=== PATIENT | male | born 1935 | race Caucasian/White ===

== ENCOUNTER 2020-04-13 13:56 | Inpatient (IN) ==
--- NOTE | 2020-04-13 14:38 | ERNOTE ---
Medical Problem HPI - Narrative Date of Service: 04/13/20 - General Chief Complaint: General Assessment Time Seen by Provider: 04/13/20 14:21 Source: patient Exam Limitations: no limitations - Immun/Allergies/Home Medications Immunizations: IMMUNIZATION HX Immunizations Up to Date No History of Influenza Vaccine No Hx Pneumococcal Vaccination No Allergies/Adverse Reactions: Allergies No Known Allergies Allergy (Verified 04/13/20 14:18) Home Medications: HOME MEDICATIONS [place]-3 Fatty Acids [Fish Oil] 1,000 mg PO DAILY 06/16/13 [Last Taken 08/06/13] aspirin 325 mg tablet 325 mg PO DAILY 01/01/18 [Last Taken Unknown] folic acid 1 mg tablet 1 mg PO DAILY #90 tab 04/01/19 [Last Taken Unknown] metoprolol tartrate 50 mg tablet 50 mg PO BID #180 tab 02/16/20 [Last Taken Unknown] atorvastatin 40 mg tablet 40 mg PO DAILY #90 tab 03/30/20 [Last Taken Unknown] lisinopril 20 mg tablet 20 mg PO DAILY #90 tab 03/30/20 [Last Taken Unknown] omeprazole 20 mg capsule,delayed release 20 mg PO DAILY #90 cap 03/30/20 [Last Taken Unknown] oxycodone-acetaminophen 5 mg-325 mg tablet 1 tab PO Q6H PRN #60 tab 03/30/20 [Last Taken Unknown] - Pain Score Pain Score #1 Pain Score: 8 - History of Present History Narrative: The patient is a 84 year old male who presents for upper back pain and fatigue which has been present for 1 week. There are associated symptoms decreased appetite and dyspnea. The patient reports upper back pain, 8/10. There are no alleviating factors. There are aggravating factors of activity. Previous treatments have included: Percocet without improvement. The past medical history includes: CAD, GERD, HTN and HLD. The social history is positive for current tobacco use and daily alcohol use, drinks 6 glasses of bourbon daily. The patient has had no known ill contacts. Patient states he was notified yesterday to present to ER due to his report of "feeling weak and ill." Patient states he doesn't know why he is here. Patient had recent PCP visit on 03/30/20 which his results were notified to him following appt and was instructed to increase oral hydration and repeat testing in approximately 1 week. Patient has not had repeat labs done since last visit. Patient states he has had poor oral intake without food consumption for 1 week and has even had decreased alcohol consumption just cause he doesn't have an appetite. Patient reports dyspnea which he states is chronic. Patient has been taking approximately 6 tabs Percocet per day which he states has not helped his upper thoracic back pain. Review of Systems - Review of Systems Constitutional: Present: fatigue. Absent: fever, chills EYE: Present: no symptoms reported ENT: Present: nasal drainage - in am upon awakening. Absent: ear pain, nose congestion Respiratory: Present: shortness of breath, cough - intermittent Cardiology: Present: no symptoms reported. Absent: chest pain Gastrointestinal/Abdominal: Present: eating less, drinking less. Absent: nausea, vomiting, diarrhea Genitourinary: Absent: dysuria, decreased urinary output - states urinates 3-4 times per day which is normal for him Musculoskeletal: Present: back pain Skin: Present: no symptoms reported. Absent: rash Neurological: Present: no symptoms reported. Absent: dizziness/light-headedness All Other Systems: All systems neg except as marked Medical History (Last Reviewed 04/13/20 @ 14:33 by JANI Person) Hypertension (Chronic) Onset Date: Unknown Hyperlipidemia (Chronic) Onset Date: Unknown GERD (gastroesophageal reflux disease) (Chronic) Onset Date: Unknown Folic acid deficiency (Chronic) Onset Date: Unknown CAD (coronary artery disease) (Chronic) Onset Date: ~2012 Spina bifida aperta of lumbar spine Onset Date: Unknown Kidney stone Onset Date: Unknown Phlebitis of superficial veins of both lower extremities Onset Date: ~2013 Surgical History: Surgical History (Last Reviewed 04/13/20 @ 14:33 by JANI Person) H/O lithotripsy Onset Date: Unknown History of appendectomy Onset Date: ~1953 History of tonsillectomy Onset Date: ~1942 Status post left foot surgery Onset Date: ~2005 heel was shattered due to fall Family History: Family History (Last Reviewed 04/13/20 @ 14:33 by JANI Person) Brother Kidney stones Father , age 86 Cancer Cirrhosis of liver Emphysema, unspecified Mother , age 71 Diabetes blood clot Social History: (Last Reviewed 04/13/20 @ 14:33 by JANI Person) Social History: adopted: No foster care: No correction: No Marital status: / lives independently: Yes household members: none caregiver/support person: No current occupational status: employed Highest level of school completed/degree received: high school graduate Service: No Tobacco: Smoking Status: Current every day smoker tobacco type: cigarettes Smoking cigarettes per day: 20.0 Smoking packs per day: 1 Alcohol: alcohol intake: current alcohol intake frequency: 3 or more drinks per day Substance Use: substance use type: does not use Dietary Habits: caffeine: Yes Physical Exam - Physical Exam General Appearance: Present: wd/wn, alert, mild distress Head Exam: Present: normal inspection, no evidence of injury Eye Exam: Normal inspection: bilateral, PERRL: bilateral, EOMI: bilateral Ears, Nose, Throat: Present: dry mucous membranes Neck: Present: normal inspection, nontender Respiratory: Present: no respiratory distress, no accessory muscle use, lungs clear, decreased breath sounds Cardiovascular/Chest: Present: regular rate, rhythm, no murmur Gastrointestinal/Abdominal: Present: normal bowel sounds, nontender, nondistended, soft, no organomegaly Extremity Exam: Present: no edema Neurological Exam: Present: alert, oriented, normal mood/affect, no motor/sensory deficits Skin Exam: Present: normal color, warm/dry Progress - Date and Time Seen: Date and Time: 04/13/20 16:28 Patient has worsening renal function with Crea 2.99 with poor oral intake. Due to patient's advanced age will discuss admission for slow IV hydration and repeat lab for monitoring. Will obtain COVID testing for planned admission. Will also administer IV Thiamine due to patient's known alcohol intake with recent decrease. Case was reviewed with and will admit for observation with continued IV hydration and repeat labs. 04/13/20 17:19 Patient is COVID +, results sent to via [facility] as was discussed during case review for pending results. Patient does not require supplemental oxygen so does not meet requirement or indication for the remdesivir or dexamethasone at this time. - Results and Orders Patient's Lab Results:: I have reviewed the patient's lab results. - Vital Signs Patient's Vital Signs:: I have reviewed the patient's vital signs. Vital Signs: Vital Signs 04/13/20 14:14 Temperature 36.2 C Pulse Rate 78 Respiratory Rate 16 Blood Pressure 133/69 O2 Sat by Pulse Oximetry 93 - EKG EKG #1 EKG: NSR, nonspecific ST T wave changes, other - first degree AV block, wandering baseline EKG read: Reviewed by me - X-Ray X-Ray #1 X-Ray: chest Interpretation: Reviewed by me X-ray Comments: IMPRESSION: EMPHYSEMA. NO ACUTE CARDIOPULMONARY DISEASE OTHERWISE IDENTIFIED. Electronically signed by Mumtaz Wright M.D.. - Progress/Reassessment Chief Complaint: General Assessment Progress:: Improved Departure Clinical Impression: Alcohol use, COVID-19 Acute on chronic renal failure Qualifiers: Acute renal failure type: unspecified Chronic kidney disease stage: unspecified stage Qualified Code(s): N17.9 - Acute kidney failure, unspecified - Departure Disposition: Still a patient Condition: Stable
[2020-04-13 14:45] LABS: Hematocrit 39.9 % (42.0-52.0); Hemoglobin 13.5 gm/dL (13.5-18.0); Mean Cell Volume 104.2 fl (78-100); Mean Corpuscular Hemoglobin 35.2 pg (27-31); Mean Corpuscular Hgb Conc 33.8 g/dl (32-36); Mean Platelet Volume 9.8 fl (8-11.3); Neutrophil % 71.5 % (42-75.0); Platelet Count 433 K/mm3 (150-450); Red Blood Count 3.83 M/mm3 (4.7-6.0); Red Cell Distribution Width 11.3 % (11.5-14.0); White Blood Count 12.6 K/mm3 (4.0-10.5)
[2020-04-13 15:12] LABS: ALT 22 U/L (19-67); AST 19 U/L (0-48); Albumin * 3.4 gm/dl (3.4-5.0); Alkaline Phosphatase * 66 U/L (50-170); Anion Gap 17.9 mmol/L (6.8-13.8); BNP * 741 pg/mL (5-650); Bilirubin, Total 0.7 mg/dL (0.0-1.1); Blood Urea Nitrogen 42 mg/dL (6-23); Ca. Corrected For Albumin 10.3 mg/dL (8.4-10.2); Calcium * 10.1 mg/dL (7.9-10.9); Carbon Dioxide 21.7 mmol/L (24-32.6); Chloride 99 mmol/L (97-106); Glucose * 96 mg/dL (70-110); Potassium 4.6 mmol/L (3.4-4.6); Sodium 134 mmol/L (132-142); Total Protein 7.6 gm/dL (6.2-8.2); Troponin I Less than 0.017 ng/mL (0.00-0.10)
[2020-04-13 15:26] LABS: Urine Bilirubin Negative (NEGATIVE); Urine Blood Negative /ul (NEGATIVE); Urine Ketone 5 mg/dL (NEGATIVE); Urine Nitrite Negative (NEGATIVE); Urine Protein 15 mg/dL (NEGATIVE); Urine Specific Gravity 1.015 SP.GR. (1.005-1.030); Urine Urobilinogen Normal (NORMAL); Urine pH 5.5 pH (5.0-7.0)
[2020-04-13 15:36] LABS: Urine Appearance Clear (CLEAR); Urine Bacteria TRACE; Urine Color Yellow; Urine Hyaline Cast 0-5 /LPF; Urine RBC 0-5 /hpf (0-5)
[2020-04-13] MEDS ORDERED: NORMAL SALINE 500 ML IV PRN (15:44)
[2020-04-13] MEDS ORDERED: THIAMINE HCL 100 MG in NORMAL SALINE 50 ML IV ONE (16:25)
[2020-04-13] MEDS ORDERED: NICOTINE 21 MG PATC TD SCH (17:45)
[2020-04-13] MEDS ORDERED: DIAZEPAM 5 MG/ML SYRG IV PRN (19:12)
[2020-04-13] MEDS: NORMAL SALINE 1,000 ML IV PRN (19:45)
--- NOTE | 2020-04-13 19:45 | HP ---
Chief Complaint - Chief Complaint Date of Service: 04/13/20 Time of Service: 19:45 Chief Complaint: weakness, fatigue, back pain History of Present Illness: 84-year-old male presented to the ER with 1 week of fatigue and weakness, decreased appetite, decreased oral intake. He also was endorsing back pain. He denies shortness of breath or cough at that time. Patient's main concern was his back pain, not responding to Percocet which he takes up to 6 tabs a day. While in the ER he was tested for Covid which came back positive. He was also found to have an acute (likely on chronic) kidney injury with a creatinine of 2.99. His baseline is unknown though he was checked in the clinic 2 weeks ago and it was 2.84. He did not follow-up with his PCP to have it retested. Patient does endorse decreased fluid intake, states he is even cut back on his drinking which he drinks up to 4-6 drinks of bourbon a day. Patient has no signs or symptoms of withdrawal. Patient was admitted under observation for his acute kidney injury as well as a positive Covid test to monitor respiratory status. Other pertinent lab work showed him to have a slightly elevated BNP at 741, a mildly elevated white count at 12.6 with no shift, negative alcohol. His vital signs are stable and he is afebrile. Chest x-ray was negative for acute cardiopulmonary disease, positive for emphysema which is unchanged from previous exam. Medical History (Last Reviewed 04/13/20 @ 14:33 by JANI Person) Hypertension (Chronic) Onset Date: Unknown Hyperlipidemia (Chronic) Onset Date: Unknown GERD (gastroesophageal reflux disease) (Chronic) Onset Date: Unknown Folic acid deficiency (Chronic) Onset Date: Unknown CAD (coronary artery disease) (Chronic) Onset Date: ~2012 Spina bifida aperta of lumbar spine Onset Date: Unknown Kidney stone Onset Date: Unknown Phlebitis of superficial veins of both lower extremities Onset Date: ~2013 Surgical History: Surgical History (Last Reviewed 04/13/20 @ 14:33 by JANI Person) H/O lithotripsy Onset Date: Unknown History of appendectomy Onset Date: ~1953 History of tonsillectomy Onset Date: ~1942 Status post left foot surgery Onset Date: ~2005 heel was shattered due to fall Family History: Family History (Last Reviewed 04/13/20 @ 14:33 by JANI Person) Brother Kidney stones Father , age 86 Cancer Cirrhosis of liver Emphysema, unspecified Mother , age 71 Diabetes blood clot Social History: (Last Reviewed 04/13/20 @ 14:33 by JANI Person) Social History: adopted: No foster care: No snf: No Marital status: / lives independently: Yes household members: none caregiver/support person: No current occupational status: employed Highest level of school completed/degree received: high school graduate Service: No Tobacco: Smoking Status: Current every day smoker tobacco type: cigarettes Smoking cigarettes per day: 20.0 Smoking packs per day: 1 Alcohol: alcohol intake: current alcohol intake frequency: 3 or more drinks per day Substance Use: substance use type: does not use Dietary Habits: caffeine: Yes Review Of Systems (GEN) - Review of Systems Generalized/Overall Review: Present: Weakness. Absent: Chills, Fever EENTM: Present: No Symptoms Reported Respiratory: Present: Shortness of Breath. Absent: Cough Cardiac: Present: No Symptoms Reported Abdominal: Present: No Symptoms Reported Genitourinary: Present: No Symptoms Reported Musculoskeletal: Present: Back Pain Neurological: Present: No Symptoms Reported Skin: Present: No Symptoms Reported Immunizations: IMMUNIZATION HX Immunizations Up to Date No History of Influenza Vaccine No Hx Pneumococcal Vaccination No Allergies/Adverse Reactions: Allergies Allergy/AdvReac Type Severity Reaction Status Date / Time No Known Allergies Allergy Verified 04/13/20 14:18 Home Medications: HOME MEDICATIONS [place]-3 Fatty Acids [Fish Oil] 1,000 mg PO DAILY 06/16/13 [Last Taken 08/06/13] aspirin 325 mg tablet 325 mg PO DAILY 01/01/18 [Last Taken Unknown] folic acid 1 mg tablet 1 mg PO DAILY #90 tab 04/01/19 [Last Taken Unknown] metoprolol tartrate 50 mg tablet 50 mg PO BID #180 tab 02/16/20 [Last Taken Unknown] atorvastatin 40 mg tablet 40 mg PO DAILY #90 tab 03/30/20 [Last Taken Unknown] lisinopril 20 mg tablet 20 mg PO DAILY #90 tab 03/30/20 [Last Taken Unknown] omeprazole 20 mg capsule,delayed release 20 mg PO DAILY #90 cap 03/30/20 [Last Taken Unknown] oxycodone-acetaminophen 5 mg-325 mg tablet 1 tab PO Q6H PRN #60 tab 03/30/20 [Last Taken Unknown] Exam - Exam Vital Signs: Vital Signs - Last Taken Temp 36.6 C 04/13/20 17:57 Pulse 65 04/13/20 18:47 Resp 12 04/13/20 18:47 BP 109/64 04/13/20 17:57 Pulse Ox 100 04/13/20 18:47 Constitutional: Present: Alert, Oriented x3, Mild distress - Back pain, Elderly. Absent: Lethargic, Somnolent ENT Exam: Present: normal ENT inspection, hearing grossly normal Eye Exam: bilateral eye: normal inspection, EOMI Neck: Present: non-tender, supple Back Exam: Present: no CVA tenderness, vertebral tenderness Respiratory: Present: lungs clear, no respiratory distress, decreased breath sounds - Bilateral bases. Absent: crackles, rales Cardiovascular/Chest: Present: regular rate, rhythm, no murmur Abdomen: Present: soft, nontender, nondistended Skin Exam: Present: normal color, warm/dry Appearance: Present: appropriate insight, disheveled Eye contact: Present: cooperative, good eye contact Thoughts: Present: normal thought pattern, no apparent hallucination, normal mood /affect Diagnostic Studies: Abnormal Lab Results 04/13/20 04/13/20 04/13/20 Range/Units 14:38 14:38 14:40 WBC 12.6 H (4.0-10.5) K/mm3 RBC 3.83 L (4.7-6.0) M/mm3 Hct 39.9 L (42.0-52.0) % MCV 104.2 H (78-100) fl MCH 35.2 H (27-31) pg RDW 11.3 L (11.5-14.0) % Neutrophils # 9.0 H (1.3-6.0) K/mm3 Carbon Dioxide 21.7 L (24-32.6) mmol/L Anion Gap 17.9 H (6.8-13.8) mmol/L BUN 42 H D (6-23) mg/dL Creatinine 2.99 H (0.4-1.4) mg/dL Est GFR (Non-Af Amer) 21 L (60-130) mL/min Calcium Adj for Albumin 10.3 H (8.4-10.2) mg/dL B-Natriuretic Peptide 741 H (5-650) pg/mL Urine Protein 15 H (NEGATIVE) mg/dL Ur Leukocyte Esterase 25 H (NEGATIVE) /ul Urine WBC 5-10 H (0-5) /hpf Hyaline Casts 0-5 H (NONE) /LPF SARS-CoV-2 (PCR) (NotDetected) 04/13/20 Range/Units 15:53 WBC (4.0-10.5) K/mm3 RBC (4.7-6.0) M/mm3 Hct (42.0-52.0) % MCV (78-100) fl MCH (27-31) pg RDW (11.5-14.0) % Neutrophils # (1.3-6.0) K/mm3 Carbon Dioxide (24-32.6) mmol/L Anion Gap (6.8-13.8) mmol/L BUN (6-23) mg/dL Creatinine (0.4-1.4) mg/dL Est GFR (Non-Af Amer) (60-130) mL/min Calcium Adj for Albumin (8.4-10.2) mg/dL B-Natriuretic Peptide (5-650) pg/mL Urine Protein (NEGATIVE) mg/dL Ur Leukocyte Esterase (NEGATIVE) /ul Urine WBC (0-5) /hpf Hyaline Casts (NONE) /LPF SARS-CoV-2 (PCR) Detected H (NotDetected) Laboratory Results WBC 12.6 K/mm3 (4.0-10.5) H 04/13/20 14:38 RBC 3.83 M/mm3 (4.7-6.0) L 04/13/20 14:38 Hgb 13.5 gm/dL (13.5-18.0) 04/13/20 14:38 Hct 39.9 % (42.0-52.0) L 04/13/20 14:38 MCV 104.2 fl (78-100) H 04/13/20 14:38 MCH 35.2 pg (27-31) H 04/13/20 14:38 MCHC 33.8 g/dl (32-36) 04/13/20 14:38 RDW 11.3 % (11.5-14.0) L 04/13/20 14:38 Plt Count 433 K/mm3 (150-450) 04/13/20 14:38 MPV 9.8 fl (8-11.3) 04/13/20 14:38 Immature Gran % (Auto) 0.20 % (0.001-0.429) 04/13/20 14:38 Immature Gran # (Auto) 0.03 K/mm3 (0.000-0.0310) 04/13/20 14:38 Neutrophils % 71.5 % (42-75.0) 04/13/20 14:38 Lymphocytes % 20.4 % (20-51) 04/13/20 14:38 Monocytes % 7.3 % (0.0-9) 04/13/20 14:38 Eosinophils % 0.4 % (0.0-3.0) 04/13/20 14:38 Basophils % 0.2 % (0.0-1.0) 04/13/20 14:38 Nucleated RBC % 0.0 k/mm3 (0-1) 04/13/20 14:38 Neutrophils # 9.0 K/mm3 (1.3-6.0) H 04/13/20 14:38 Lymphocytes # 2.58 k/mm3 (1.5-3.5) 04/13/20 14:38 Monocytes # 0.9 k/mm3 (0.0-1.0) 04/13/20 14:38 Eosinophils # 0.1 k/mm3 (0.0-0.7) 04/13/20 14:38 Absolute Basophils 0.0 k/mm3 (0.0-0.1) 04/13/20 14:38 Sodium 134 mmol/L (132-142) 04/13/20 14:38 Plasma Sodium 134 mmol/L (130-142) 04/13/20 14:38 Potassium 4.6 mmol/L (3.4-4.6) 04/13/20 14:38 Chloride 99 mmol/L (97-106) 04/13/20 14:38 Carbon Dioxide 21.7 mmol/L (24-32.6) L 04/13/20 14:38 Anion Gap 17.9 mmol/L (6.8-13.8) H 04/13/20 14:38 BUN 42 mg/dL (6-23) H D 04/13/20 14:38 Creatinine 2.99 mg/dL (0.4-1.4) H 04/13/20 14:38 Est GFR (Non-Af Amer) 21 mL/min (60-130) L 04/13/20 14:38 BUN/Creatinine Ratio 14.0 (9.0-21.6) 04/13/20 14:38 Random Glucose 96 mg/dL (70-110) 04/13/20 14:38 Calcium 10.1 mg/dL (7.9-10.9) 04/13/20 14:38 Calcium Adj for Albumin 10.3 mg/dL (8.4-10.2) H 04/13/20 14:38 Total Bilirubin 0.7 mg/dL (0.0-1.1) 04/13/20 14:38 AST 19 U/L (0-48) 04/13/20 14:38 ALT 22 U/L (19-67) 04/13/20 14:38 Alkaline Phosphatase 66 U/L (50-170) 04/13/20 14:38 Troponin I Less than 0.017 ng/mL (0.00-0.10) 04/13/20 14:38 B-Natriuretic Peptide 741 pg/mL (5-650) H 04/13/20 14:38 Total Protein 7.6 gm/dL (6.2-8.2) 04/13/20 14:38 Albumin 3.4 gm/dl (3.4-5.0) 04/13/20 14:38 Urine Color Yellow 04/13/20 14:40 Urine Appearance Clear (CLEAR) 04/13/20 14:40 Urine pH 5.5 pH (5.0-7.0) 04/13/20 14:40 Ur Specific [place] 1.015 SP.GR. (1.005-1.030) 04/13/20 14:40 Urine Protein 15 mg/dL (NEGATIVE) H 04/13/20 14:40 Urine Glucose (UA) Negative mg/dL (NEGATIVE) 04/13/20 14:40 Urine Ketones 5 mg/dL (NEGATIVE) 04/13/20 14:40 Urine Blood Negative /ul (NEGATIVE) 04/13/20 14:40 Urine Nitrate Negative (NEGATIVE) 04/13/20 14:40 Urine Bilirubin Negative mg/dl (NEGATIVE) 04/13/20 14:40 Prot Sulfosalicylic Acd Negative mg/dL (0) 04/13/20 14:40 Urine Urobilinogen Normal EU/dl (NORMAL) 04/13/20 14:40 Ur Leukocyte Esterase 25 /ul (NEGATIVE) H 04/13/20 14:40 Urine RBC 0-5 /hpf (0-5) 04/13/20 14:40 Urine WBC 5-10 /hpf (0-5) H 04/13/20 14:40 Ur Epithelial Cells Trace /hpf (0-5) 04/13/20 14:40 Urine Bacteria Trace (NONE) 04/13/20 14:40 Hyaline Casts 0-5 /LPF (NONE) H 04/13/20 14:40 Urine Culture Comments Culture to follow 04/13/20 14:40 Ethyl Alcohol Less than 3.0 mg/dL (0.0-10.0) 04/13/20 14:38 SARS-CoV-2 (PCR) Detected (NotDetected) H 04/13/20 15:53 Assessment/Plan - Assessment/Plan (1) Acute on chronic renal failure Assessment: Patient with unknown baseline creatinine and GFR. Creatinine 2.99 with a GFR of 21 upon admission. Will repeat BMP in the morning. We will provide gentle fluid resuscitation at 125 normal saline per hour and monitor I's and O's. Problem: Acute Qualifiers: Acute renal failure type: unspecified Chronic kidney disease stage: unspecified stage Qualified Code(s): N17.9 - Acute kidney failure, unspecified; N18.9 - Chronic kidney disease, unspecified (2) Dehydration Assessment: Patient received a bolus of normal saline in the ER. We will continue normal saline 125 an hour. Will monitor kidney function while here. Problem: Acute (3) COVID-19 Assessment: Respiratory status stable. Will provide supplemental o2 if needed. Currently sating well on room air. started on lovenox and decadron Problem: Acute (4) Alcohol use Assessment: CIWA ordered, valium for elevated scores as needed. Problem: Acute (5) Hypertension Assessment: stable Problem: Chronic Qualifiers: Hypertension type: essential hypertension Qualified Code(s): I10 - Essential (primary) hypertension (6) Folic acid deficiency Assessment: continue folic acid at home dose. thiamine given in the ER Problem: Chronic (7) Emphysema lung Problem: Suspected
[2020-04-13] MEDS: ENOXAPARIN SODIUM 40 MG/0.4 ML SYRG SC SCH (22:18)
[2020-04-13] MEDS: METOPROLOL TARTRATE 50 MG TABLET PO SCH (22:18)
[2020-04-14] MEDS: NORMAL SALINE 1,000 ML IV PRN ×3 (03:31→20:02)
[2020-04-14] MEDS: PANTOPRAZOLE SODIUM 20 MG TABLET.DR PO SCH (06:57)
[2020-04-14] MEDS: NICOTINE 21 MG PATC TD SCH (08:39)
[2020-04-14] MEDS: ASPIRIN 325 MG TABLET.DR PO SCH (08:40)
[2020-04-14] MEDS: LISINOPRIL 20 MG TABLET PO SCH (08:40)
[2020-04-14] MEDS: FOLIC ACID 1 MG TABLET PO SCH (08:40)
[2020-04-14] MEDS: METOPROLOL TARTRATE 50 MG TABLET PO SCH ×2 (08:40→20:02)
[2020-04-14] MEDS: DEXAMETHASONE SODIUM PHOSP/PF 10 MG/ML VIAL IV SCH (08:41)
[2020-04-14] MEDS ORDERED: ROSUVASTATIN CALCIUM 20 MG TABLET PO SCH (09:00)
[2020-04-14] MEDS ORDERED: DEXAMETHASONE SODIUM PHOSPHATE 4 MG/ML VIAL IV SCH (09:00)
[2020-04-14 09:23] LABS: Hematocrit 34.1 % (42.0-52.0); Mean Cell Volume 107.2 fl (78-100); Mean Corpuscular Hemoglobin 34.6 pg (27-31); Mean Corpuscular Hgb Conc 32.3 g/dl (32-36); Mean Platelet Volume 9.7 fl (8-11.3); Neutrophil # 5.2 K/mm3 (1.3-6.0); Neutrophil % 60.6 % (42-75.0); Platelet Count 358 K/mm3 (150-450); Red Blood Count 3.18 M/mm3 (4.7-6.0); Red Cell Distribution Width 11.2 % (11.5-14.0); White Blood Count 8.6 K/mm3 (4.0-10.5)
[2020-04-14 09:35] LABS: Albumin * 2.6 gm/dl (3.4-5.0); Anion Gap 10.5 mmol/L (6.8-13.8); BUN/Creatinine Ratio 14.7 (9.0-21.6); Bilirubin, Total 0.6 mg/dL (0.0-1.1); Ca. Corrected For Albumin 8.9 mg/dL (8.4-10.2); Calcium * 8.1 mg/dL (7.9-10.9); Carbon Dioxide 24.9 mmol/L (24-32.6); Potassium 4.4 mmol/L (3.4-4.6); Total Protein 5.8 gm/dL (6.2-8.2)
[2020-04-14] MEDS: oxyCODONE HCL/ACETAMINOPHEN 1 TAB TABLET PO PRN ×2 (14:33→20:58)
--- NOTE | 2020-04-14 17:25 | PN ---
Subjective - Date and Time Seen Date: 04/14/20 Time: 17:23 Subjective Narrative: Feels better today. Kidney function improved but still significantly low with a gfr of 26 and a creatinine of 2.54. Patient made to inpatient status due to kidney injury and dehydration. Otherwise he is feeling well and has no concerns. Vitals stable, hes been afebrile, and is on room air. Objective - Review of Systems Generalized/Overall Review: Reports: Weakness. Denies: Chills, Fever EENTM: Reports: No Symptoms Reported Respiratory: Denies: Cough, Shortness of Breath Cardiac: Reports: No Symptoms Reported Abdominal: Denies: Nausea, Vomiting Musculoskeletal Complaints: Reports: Back Pain Neurological: Reports: No Symptoms Reported Skin: Reports: No Symptoms Reported Endocrine: Reports: No Symptoms Reported - Vitals Vitals: Last Vital Signs Temp 35.8 C L 04/14/20 14:30 Pulse 71 04/14/20 14:30 Resp 16 04/14/20 14:30 BP 97/59 04/14/20 14:30 Pulse Ox 100 04/14/20 14:30 - Abnormal Lab Findings Abnormal Lab Findings: Abnormal Lab Results 04/14/20 04/14/20 Range/Units 09:10 09:10 RBC 3.18 L (4.7-6.0) M/mm3 Hgb 11.0 L (13.5-18.0) gm/dL Hct 34.1 L (42.0-52.0) % MCV 107.2 H (78-100) fl MCH 34.6 H (27-31) pg RDW 11.2 L (11.5-14.0) % Immature Gran % (Auto) 0.50 H (0.001-0.429) % Immature Gran # (Auto) 0.04 H (0.000-0.0310) K/mm3 BUN 37 H (6-23) mg/dL Creatinine 2.52 H D (0.4-1.4) mg/dL Est GFR (Non-Af Amer) 26 L D (60-130) mL/min ALT 15 L (19-67) U/L Total Protein 5.8 L (6.2-8.2) gm/dL Albumin 2.6 L (3.4-5.0) gm/dl - Exam Constitutional: Present: Alert, Oriented x3, No distress ENT Exam: Present: hearing grossly normal Neck: Present: non-tender, supple Respiratory: Present: lungs clear, normal breath sounds. Absent: respiratory distress Cardiovascular/Chest: Present: regular rate, rhythm, no murmur Abdomen: Present: soft, nontender, nondistended Skin Exam: Present: normal color, warm/dry Neurologic: Present: alert, normal mood/affect, oriented x 3 Appearance: Present: appropriate appearance, appropriate insight Eye contact: Present: cooperative Thoughts: Present: normal thought pattern, normal mood /affect Assessment/Plan Plan Narrative: 30 minutes critical care time spent with patient, reviewing/ordering labs, adjusting tx plan. - Problems/Diagnosis (1) Acute on chronic renal failure Problem: Acute Qualifiers: Acute renal failure type: unspecified Chronic kidney disease stage: unspecified stage Qualified Code(s): N17.9 - Acute kidney failure, unspecified; N18.9 - Chronic kidney disease, unspecified Narrative: Improving with fluids. Repeat lab work in the am. Changed to inpatient due to severe dehydration and kidney function. (2) Dehydration Problem: Acute (3) COVID-19 Problem: Acute Narrative: stable. No respiratory distress. On decadron and lovenox (4) Alcohol use Problem: Acute Narrative: no signs of withdrawal, CIWA being monitored. Valium PRN for elevated CIWA scores (5) Hypertension Problem: Chronic Qualifiers: Hypertension type: essential hypertension Qualified Code(s): I10 - [place] l (primary) hypertension Narrative: Well controlled, no changes to tx plan (6) Folic acid deficiency Problem: Chronic (7) Emphysema lung Problem: Suspected
[2020-04-14] MEDS: ENOXAPARIN SODIUM 40 MG/0.4 ML SYRG SC SCH (19:18)
[2020-04-14] MEDS: ROSUVASTATIN CALCIUM 20 MG TABLET PO SCH (20:02)
[2020-04-15] MEDS: NORMAL SALINE 1,000 ML IV PRN ×3 (04:06→22:45)
[2020-04-15 07:32] LABS: BUN/Creatinine Ratio 17.7 (9.0-21.6); Calcium * 8.1 mg/dL (7.9-10.9); Carbon Dioxide 22.6 mmol/L (24-32.6); Estimated Creat Clear 23.7; Potassium 4.6 mmol/L (3.4-4.6)
[2020-04-15] MEDS: PANTOPRAZOLE SODIUM 20 MG TABLET.DR PO SCH (07:45)
[2020-04-15] MEDS: LISINOPRIL 20 MG TABLET PO SCH (09:34)
[2020-04-15] MEDS: NICOTINE 21 MG PATC TD SCH (09:34)
[2020-04-15] MEDS: DEXAMETHASONE SODIUM PHOSP/PF 10 MG/ML VIAL IV SCH (09:34)
[2020-04-15] MEDS: FOLIC ACID 1 MG TABLET PO SCH (09:34)
[2020-04-15] MEDS: METOPROLOL TARTRATE 50 MG TABLET PO SCH ×2 (09:34→20:39)
[2020-04-15] MEDS: ASPIRIN 325 MG TABLET.DR PO SCH (09:34)
[2020-04-15] MEDS: oxyCODONE HCL/ACETAMINOPHEN 1 TAB TABLET PO PRN ×2 (14:43→22:41)
--- NOTE | 2020-04-15 17:39 | PN ---
Subjective - Date and Time Seen Date: 04/15/20 Time: 17:34 Subjective Narrative: Patient feeling much better today than he has been since been here. Patient up and about. Patient having no issues urinating. Patient's kidney function improved again fairly significant overnight. It still up from previous baseline but he had not been checked for over a year and so unsure what his baseline is. We will keep him here 1 more night to reevaluate kidney function in the morning. No acute events overnight, patient feels well. Patient from a Covid standpoint is stable, not requiring oxygen and denies cough or shortness of breath. Objective - Review of Systems Generalized/Overall Review: Denies: Weakness, Chills, Fever EENTM: Reports: No Symptoms Reported Respiratory: Denies: Cough, Shortness of Breath Cardiac: Reports: No Symptoms Reported Abdominal: Denies: Nausea, Vomiting, Abdominal Pain Genitourinary Symptoms: Reports: No Symptoms Reported Musculoskeletal Complaints: Reports: Back Pain Neurological: Reports: No Symptoms Reported - Vitals Vitals: Last Vital Signs Temp 36.8 C 04/15/20 14:46 Pulse 78 04/15/20 14:46 Resp 16 04/15/20 14:46 BP 107/67 04/15/20 14:46 Pulse Ox 100 04/15/20 14:46 - Abnormal Lab Findings Abnormal Lab Findings: Abnormal Lab Results 04/15/20 Range/Units 07:22 Chloride 108 H (97-106) mmol/L Carbon Dioxide 22.6 L (24-32.6) mmol/L BUN 37 H (6-23) mg/dL Creatinine 2.09 H D (0.4-1.4) mg/dL Est GFR (Non-Af Amer) 32 L D (60-130) mL/min - Exam Constitutional: Present: Alert, Oriented x3, Cooperative, Elderly ENT Exam: Present: hearing grossly normal. Absent: nasal congestion, nasal drainage Neck: Present: non-tender, supple Respiratory: Present: lungs clear, normal breath sounds, no respiratory distress Cardiovascular/Chest: Present: regular rate, rhythm, no murmur Abdomen: Present: Normal bowel sounds, soft, nontender, nondistended Skin Exam: Present: normal color, warm/dry Appearance: Present: appropriate appearance, appropriate insight Eye contact: Present: cooperative, good eye contact Thoughts: Present: normal thought pattern, normal mood /affect Assessment/Plan - Problems/Diagnosis (1) Acute on chronic renal failure Problem: Acute Qualifiers: Acute renal failure type: unspecified Chronic kidney disease stage: unspecified stage Qualified Code(s): N17.9 - Acute kidney failure, unspecified; N18.9 - Chronic kidney disease, unspecified Narrative: Significantly improved from admission but still elevated. GFR up to 31, creatinine 2.02. Last baseline we had was roughly 1.65 which was a year ago. We will keep patient here over 1 more night and recheck kidney function in the morning. Likely to be discharged home tomorrow morning, patient is in good spirits and is agreement with this. (2) Dehydration Problem: Resolved Narrative: Improved, good urine output (3) COVID-19 Problem: Acute Narrative: From a Covid standpoint patient stable. He is not requiring supplemental oxygen to maintain sats. He does have a cough or shortness of breath. He feels well. Patient is on Lovenox and Decadron. (4) Alcohol use Problem: Acute (5) Hypertension Problem: Chronic Qualifiers: Hypertension type: essential hypertension Qualified Code(s): I10 - Essential (primary) hypertension (6) Folic acid deficiency Problem: Chronic (7) Emphysema lung Problem: Suspected
[2020-04-15] MEDS: ENOXAPARIN SODIUM 40 MG/0.4 ML SYRG SC SCH (20:39)
[2020-04-15] MEDS: ROSUVASTATIN CALCIUM 20 MG TABLET PO SCH (20:43)
[2020-04-16] MEDS: PANTOPRAZOLE SODIUM 20 MG TABLET.DR PO SCH (06:39)
[2020-04-16] MEDS: NORMAL SALINE 1,000 ML IV PRN (06:40)
[2020-04-16 07:09] LABS: Anion Gap 12.5 mmol/L (6.8-13.8); BUN/Creatinine Ratio 20.1 (9.0-21.6); Calcium * 8.2 mg/dL (7.9-10.9); Carbon Dioxide 23.2 mmol/L (24-32.6); Estimated Creat Clear 27.7; Potassium 4.7 mmol/L (3.4-4.6)
--- NOTE | 2020-04-16 08:24 | DS ---
(1) Acute on chronic renal failure Problem: Acute Qualifiers: Acute renal failure type: unspecified Chronic kidney disease stage: unspecified stage Qualified Code(s): N17.9 - Acute kidney failure, unspecified; N18.9 - Chronic kidney disease, unspecified (2) Dehydration Problem: Resolved (3) COVID-19 Problem: Acute (4) Alcohol use Problem: Acute (5) Hypertension Problem: Chronic Qualifiers: Hypertension type: essential hypertension Qualified Code(s): I10 - Essential (primary) hypertension (6) Folic acid deficiency Problem: Chronic (7) Emphysema lung Problem: Suspected Date of Discharge:: 04/16/20 Hospital Course: 84-year-old male admitted to the hospital on 04/13/2024 acute kidney injury on top of chronic kidney disease as well as weakness. Patient was found to be Covid positive. Patient had not been eating or drinking much the week leading up to his admission due to just feeling "crappy ". Patient initial creatinine and GFR was 2.99 and 21, on the day of discharge had returned down to 1.79 and his GFR was back up to 39. Baseline creatinine that we had previously was 1.65 a year ago. Patient follow with his PCP in the next 1 to 2 weeks to repeat kidney function blood work. As far as from a Covid standpoint, patient was started on Decadron and Lovenox, Decadron will be continued for another 3 days in the outpatient setting. Patient has been stable from a respiratory standpoint, not requiring oxygen supplementation to maintain sats. Patient's been afebrile and his other vital signs have also been within normal limits. Patient feeling much better today than he did when he came in and is ready be discharged. No changes to his current medications made. Procedures Performed: none Results and Findings: Lab Pending Results 04/13/20 14:38: WBC 12.6 H, RBC 3.83 L, Hgb 13.5, Hct 39.9 L, MCV 104.2 H, MCH 35.2 H, MCHC 33.8, RDW 11.3 L, Plt Count 433, MPV 9.8, Immature Gran % (Auto) 0.20, Immature Gran # (Auto) 0.03, Neutrophils % 71.5, Lymphocytes % 20.4, Monocytes % 7.3, Eosinophils % 0.4, Basophils % 0.2, Nucleated RBC % 0.0, Neutrophils # 9.0 H, Lymphocytes # 2.58, Monocytes # 0.9, Eosinophils # 0.1, Absolute Basophils 0.0 04/13/20 14:38: Sodium 134, Plasma Sodium 134, Potassium 4.6, Chloride 99, Carbon Dioxide 21.7 L, Anion Gap 17.9 H, BUN 42 H D, Creatinine 2.99 H, Est GFR (Non-Af Amer) 21 L, BUN/Creatinine Ratio 14.0, Random Glucose 96, Calcium 10.1, Calcium Adj for Albumin 10.3 H, Total Bilirubin 0.7, AST 19, ALT 22, Alkaline Phosphatase 66, Troponin I Less than 0.017, B-Natriuretic Peptide 741 H, Total Protein 7.6, Albumin 3.4, Ethyl Alcohol Less than 3.0 04/13/20 14:40: Urine Color Yellow, Urine Appearance Clear, Urine pH 5.5, Ur Specific [place] 1.015, Urine Protein 15 H, Urine Glucose (UA) Negative, Urine Ketones 5, Urine Blood Negative, Urine Nitrate Negative, Urine Bilirubin Negative, Prot Sulfosalicylic Acd Negative, Urine Urobilinogen Normal, Ur Leukocyte Esterase 25 H, Urine RBC 0-5, Urine WBC 5-10 H, Ur Epithelial Cells Trace, Urine Bacteria Trace, Hyaline Casts 0-5 H, Urine Culture Comments Culture to follow 04/13/20 15:53: SARS-CoV-2 (PCR) Detected H 04/14/20 09:10: WBC 8.6 D, RBC 3.18 L, Hgb 11.0 L, Hct 34.1 L, MCV 107.2 H, MCH 34.6 H, MCHC 32.3, RDW 11.2 L, Plt Count 358, MPV 9.7, Immature Gran % (Auto) 0.50 H, Immature Gran # (Auto) 0.04 H, Neutrophils % 60.6, Lymphocytes % 28.4, Monocytes % 9.0, Eosinophils % 1.3, Basophils % 0.2, Nucleated RBC % 0.0, Neutrophils # 5.2, Lymphocytes # 2.44, Monocytes # 0.8, Eosinophils # 0.1, Absolute Basophils 0.0 04/14/20 09:10: Sodium 137, Plasma Sodium 137, Potassium 4.4, Chloride 106, Carbon Dioxide 24.9, Anion Gap 10.5, BUN 37 H, Creatinine 2.52 H D, Est GFR (Non-Af Amer) 26 L D, BUN/Creatinine Ratio 14.7, Random Glucose 101, Calcium 8.1, Calcium Adj for Albumin 8.9, Total Bilirubin 0.6, AST 17, ALT 15 L, Alkaline Phosphatase 54, Total Protein 5.8 L, Albumin 2.6 L 04/15/20 07:22: Sodium 138, Plasma Sodium 138, Potassium 4.6, Chloride 108 H, Carbon Dioxide 22.6 L, Anion Gap 12.0, BUN 37 H, Creatinine 2.09 H D, Est GFR (Non-Af Amer) 32 L D, BUN/Creatinine Ratio 17.7, Random Glucose 103, Calcium 8.1 04/16/20 06:55: Sodium 139, Plasma Sodium 139, Potassium 4.7 H, Chloride 108 H, Carbon Dioxide 23.2 L, Anion Gap 12.5, BUN 36 H, Creatinine 1.79 H, Est GFR (Non-Af Amer) 39 L D, BUN/Creatinine Ratio 20.1, Random Glucose 85, Calcium 8.2 Discharge Location: Home Disposition: Home self-care Condition: Stable Discharge Activity: Activity as tolerated Discharge Diet: Low fat/chol Referrals: Naz Tim FNP [Primary Care Provider] - Two Weeks Prescriptions (Any new or edited meds): Dexamethasone [Decadron] 6 mg PO DAILY #4 tab Transmission Status: Pending to [id number] Complete Home Medications List: Complete Home Medication List: Wasta-3 Fatty Acids [Fish Oil] 1,000 mg PO DAILY 06/16/13 aspirin 325 mg tablet 325 mg PO DAILY 01/01/18 folic acid 1 mg tablet 1 mg PO DAILY #90 tab 04/01/19 metoprolol tartrate 50 mg tablet 50 mg PO BID #180 tab 02/16/20 atorvastatin 40 mg tablet 40 mg PO DAILY #90 tab 03/30/20 lisinopril 20 mg tablet 20 mg PO DAILY #90 tab 03/30/20 omeprazole 20 mg capsule,delayed release 20 mg PO DAILY #90 cap 03/30/20 oxycodone-acetaminophen 5 mg-325 mg tablet 1 tab PO Q6H PRN #60 tab 03/30/20 Dexamethasone [Decadron] 6 mg PO DAILY #4 tab 04/16/20
[2020-04-16] MEDS: LISINOPRIL 20 MG TABLET PO SCH (08:36)
[2020-04-16] MEDS: NICOTINE 21 MG PATC TD SCH (08:36)
[2020-04-16] MEDS: ASPIRIN 325 MG TABLET.DR PO SCH (08:37)
[2020-04-16] MEDS: METOPROLOL TARTRATE 50 MG TABLET PO SCH (08:37)
[2020-04-16] MEDS: DEXAMETHASONE SODIUM PHOSP/PF 10 MG/ML VIAL IV SCH (08:37)
[2020-04-16] MEDS: FOLIC ACID 1 MG TABLET PO SCH (08:37)
[2020-04-16] MEDS: oxyCODONE HCL/ACETAMINOPHEN 1 TAB TABLET PO PRN (08:43)
[2020-04-16 10:47] VITALS: BP 112/74
== END 2020-04-16 11:20 | disposition home or self-care (01) | DRG 178 ==
LOC: SCU 13:56 → ER 13:56 → SCU 18:30 → MS 04-14 07:45
PROVIDERS: ADMIT Family Medicine; ATTEND Family Medicine
DX: I44.0 Atrioventricular block, first degree; N17.9 Acute kidney failure, unspecified; Z72.89 Other problems related to lifestyle; I10 Essential (primary) hypertension; K21.9 Gastro-esophageal reflux disease without esophagitis; E78.5 Hyperlipidemia, unspecified; E53.8 Deficiency of other specified B group vitamins; I25.10 Atherosclerotic heart disease of native coronary artery without angina pectoris; J43.9 Emphysema, unspecified; N18.9 Chronic kidney disease, unspecified; Z72.0 Tobacco use; U07.1 COVID-19; E86.0 Dehydration